=== PATIENT | male | born 1980 | race African-American/Black ===

== ENCOUNTER 2017-03-31 10:17 | Emergency (ER) | payer MEDICAID ==
[~2017-03-31] VITALS: Ht 175.3 cm; Wt 68.0 kg
[2017-03-31] MEDS ORDERED: ALBUTEROL (0.083%) 2.5MG/3ML NEB HHN STA (10:36)
[2017-03-31] MEDS ORDERED: KETOROLAC 30MG/ML VIAL IV STA (10:36)
[2017-03-31] MEDS ORDERED: ASPIRIN 81MG TABLET PO ONE (10:45)
[2017-03-31 10:57] LABS: BASOPHILS % 1.1 % (0.0-2.0); EOSINOPHILS % 4.1 % (0.0-5.0); HEMATOCRIT. 43.7 % (42.0-52.0); HEMOGLOBIN. 14.9 g/dL (14.0-18.0); LYMPHOCYTES % 38.5 % (20.0-50.0); MEAN CORPUSCULAR HEMOGLOBIN 32.1 pg (28.0-32.0); MEAN CORPUSCULAR VOLUME 94.2 fL (80.0-94.0); MEAN PLATELET VOLUME 8.1 fl (7.4-10.4); MONOCYTES % 9.8 % (2.0-8.0); NEUTROPHILS % 46.5 % (40.0-76.0); PLATELET 214 x1000/uL (130-400); RED BLOOD CELL COUNT 4.64 mill/uL (4.7-6.1); RED CELL DISTRIBUTION WIDTH 13.8 % (11.6-14.6)
[2017-03-31 11:05] LABS: INR 1.1; PROTHROMBIN TIME 11.2 sec
[2017-03-31 11:14] LABS: CARBON DIOXIDE 34 mEq/L (21-32); CHLORIDE 104 mEq/L (98-107); ETHANOL BLOOD < 10 mg/dL; TROPONIN I < 0.02 ng/mL (0.00-0.04)
[2017-03-31 11:19] LABS: BG BASE EXCESS 3.3 mmol/L (-2.0-2.0); BG CARBOXYHEMOGLOBIN 2.5 % (0.5-1.5); BG DEOXYHEMOGLOBIN 1.8 % (0.0-5.0); BG FRACTION INSPIRED OXYGEN 21; BG HCO3 ACT 28.1 mmol/L (22.0-26.0); BG METHEMOGLOBIN 0.1 % (0.0-1.5); BG OXYGEN SATURATION 98.2 % (92.0-98.5); BG OXYHEMOGLOBIN 95.6 % (94.0-97.0); BG PCO2 43.3 mmHg (35.0-45.0); BG PO2 113.9 mmHg (75.0-100.0); BG SAMPLE SITE LEFT RADIAL; BG TOTAL HEMOGLOBIN 15.3 g/dL (12.0-18.0); BG VENT MODE ROOM AIR
[2017-03-31 11:19] LABS: *AMPHETAMINES SCREEN URINE NEGATIVE (NEGATIVE); *BARBITURATES SCREEN URINE NEGATIVE (NEGATIVE); *BENZODIAZEPINES SCREEN URINE NEGATIVE (NEGATIVE); *COCAINE SCREEN URINE NEGATIVE (NEGATIVE); CANNABINOID URINE SCREEN PRESUMTIVE POSITIVE (NEGATIVE); METHADONE URINE SCREEN NEGATIVE (NEGATIVE); OPIATES URINE SCREEN NEGATIVE (NEGATIVE); PHENCYCLIDINE URINE SCREEN NEGATIVE (NEGATIVE)
[2017-03-31 13:22] VITALS: BP 117/69
== END 2017-03-31 13:28 | disposition home or self-care (01) ==
LOC: ER 10:51
DX: R07.1 Chest pain on breathing (principal); R03.0 Elevated blood-pressure reading, without diagnosis of hypertension; F12.90 Cannabis use, unspecified, uncomplicated; F17.210 Nicotine dependence, cigarettes, uncomplicated; Z71.6 Tobacco abuse counseling; Z79.82 Long term (current) use of aspirin; Z98.890 Other specified postprocedural states
CPT/HCPCS: 36415; 36600; 71010; 80053; 80305; 82375; 82805; 83880; 84484; 85025; 85610; 93005; 94640; 96374; 99285; 99406; G0482; J1885; J7611

== ENCOUNTER 2017-12-13 09:43 | Emergency (ER) | payer MEDICAID ==
[~2017-12-13] VITALS: Ht 172.7 cm; Wt 66.2 kg
[2017-12-13 14:31] LABS: CLARITY URINE CLEAR (CLEAR); COLOR URINE YELLOW (YELLOW); KETONES URINE NEGATIVE (NEGATIVE); LEUKOCYTE ESTERASE URINE NEGATIVE (NEGATIVE); NITRITE URINE NEGATIVE (NEGATIVE); OCCULT BLOOD URINE NEGATIVE (NEGATIVE); PROTEIN URINE NEGATIVE (NEGATIVE); SPECIFIC GRAVITY URINE 1.016 (1.005-1.030); UROBILINOGEN URINE 0.2 E.U./dL (0.2-1.0)
[2017-12-13 14:42] LABS: BASOPHILS % 1.1 % (0.0-2.0); EOSINOPHILS % 2.4 % (0.0-5.0); HEMATOCRIT. 42.1 % (42.0-52.0); HEMOGLOBIN. 14.8 g/dL (14.0-18.0); LYMPHOCYTES % 43.5 % (20.0-50.0); MEAN CORPUSCULAR HEMOGLOBIN 33.1 pg (28.0-32.0); MEAN CORPUSCULAR VOLUME 94.2 fL (80.0-94.0); MONOCYTES % 8.1 % (2.0-8.0); NEUTROPHILS % 44.9 % (40.0-76.0); PLATELET 259 x1000/uL (130-400); RED BLOOD CELL COUNT 4.47 mill/uL (4.7-6.1); RED CELL DISTRIBUTION WIDTH 13.8 % (11.6-14.6)
[2017-12-13 14:46] LABS: *AMPHETAMINES SCREEN URINE NEGATIVE (NEGATIVE); *BARBITURATES SCREEN URINE NEGATIVE (NEGATIVE); *BENZODIAZEPINES SCREEN URINE NEGATIVE (NEGATIVE); *COCAINE SCREEN URINE NEGATIVE (NEGATIVE); CANNABINOID URINE SCREEN PRESUMTIVE POSITIVE (NEGATIVE); METHADONE URINE SCREEN NEGATIVE (NEGATIVE); OPIATES URINE SCREEN NEGATIVE (NEGATIVE); PHENCYCLIDINE URINE SCREEN NEGATIVE (NEGATIVE)
[2017-12-13 14:48] LABS: INR 1.1; PROTHROMBIN TIME 11.1 sec (9.4-11.6)
[2017-12-13 14:53] LABS: CHLORIDE 106 mEq/L (98-107)
[2017-12-13] MEDS ORDERED: ACETAMINOPHEN 325MG TABLET PO ONE (17:30)
[2017-12-13 17:39] VITALS: BP 106/69
== END 2017-12-13 18:07 | disposition home or self-care (01) ==
LOC: ER 12:09
DX: M94.0 Chondrocostal junction syndrome [Tietze] (principal); F41.9 Anxiety disorder, unspecified; R20.2 Paresthesia of skin; E87.3 Alkalosis; E86.0 Dehydration; D50.9 Iron deficiency anemia, unspecified; D72.821 Monocytosis (symptomatic); F12.10 Cannabis abuse, uncomplicated
CPT/HCPCS: 36415; 70450; 71045; 80053; 80305; 81003; 83036; 83880; 84484; 85025; 85610; 93005; 99285